=== PATIENT | female | born 1945 | race Caucasian/White ===

== ENCOUNTER 2019-05-21 17:16 | Emergency (ER) | payer MEDICARE, OTHER, SELFPAY ==
[2019-05-21 17:23] VITALS: BP 119/55; PULSE 81; RESP 20; TEMP 36.6; O2SAT 93; BMI 26.6
--- NOTE | 2019-05-21 17:26 | ED_ITS ---
Entered by Cass Moss, acting as scribe for HPI - Chest Pain General: Chief Complaint: Chest Pain Stated Complaint: chest pains, N, V, D, SYNCOPE Time Seen by Provider: 05/21/19 17:26 Source: patient and family Mode of arrival: ambulatory History of Present Illness: HPI narrative: 74 yo f came to the er pov with family for chest pain, n, v, d, and syncope episode. 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) Timing of current episode: episodic Onset: during rest Pain radiation: none Severity: mild Relieving factors: nothing Exacerbating factors: exertion Associated symptoms: Reports nausea and vomiting; Deny dyspnea or fever(s) Risk Factors: Coronary artery disease risk factors: none Related Data: On Oral Contraceptives: No Review of Systems General: Reports: 10 or more systems reviewed and unremarkable except in HPI and below Const: Denies: fever Eyes: Denies: change in vision ENMT: Denies: throat pain Card: Reports: chest pain Resp: Denies: shortness of breath GI: Reports: nausea, vomiting and diarrhea; Denies: coffee grounds in vomit : Denies: flank pain Musc: Denies: neck pain Skin/Breast: Denies: rash Neuro: Reports: other (syncope); Denies: headache Psych: Denies: anxiety Endo: Denies: excessive urination Tyrone/Lymph: Denies: easy bruising All/Imm: Denies: hives PFSH ED PFSH: Statuses (acute, chronic, etc) shown below reflect problem list status as previously entered and may not be historically accurate Social History Smoking and tobacco status: never smoked Physical Exam Const: COMMON NORMALS: oriented x3 HENMT: HEAD & SCALP: normal to inspection Eye: COMMON NORMALS: PERRL PUPIL: Yes PERRL Neck/C-Spine: COMMON NORMALS: full ROM GENERAL: Yes normal visual inspection Chest: COMMONS NORMALS: inspection of chest normal Resp: COMMON NORMALS: normal respiratory effort Cardio: RATE: tachycardic GI: COMMON NORMALS: normal to inspection, nondistended, normoactive bowel sounds OTHER: Patient did have melanotic stools. Hemoccult was essentially negative. Patient is instructed to contact her primary care physician to arrange for an EGD and colonoscopy : COMMON NORMALS: Yes no CVA tenderness BLADDER/KIDNEY EXAM: Yes no CVA tenderness Back/Pelvis: COMMON NORMALS: no CVA tenderness Extremity: COMMON NORMALS: normal to inspection Neuro: COMMON NORMALS: oriented x3 Course ED course: Patient feels much better after the administration of IV fluids. I gave the patient the option of observation admission for dismissal to home. Patient wishes to be dismissed. I will write her prescription for Zofran. She can also use a small amount of Pepto-Bismol for the diarrhea. She is to follow- up with her primary care physician to arrange an EGD and colonoscopy. And she will return to the emergency room for problems or concerns. Vital Signs: Vital signs: Vital Signs Temperature 97.9 F 05/21/19 17:23 Pulse Rate 76 05/21/19 19:36 Respiratory Rate 16 05/21/19 19:36 Blood Pressure 118/52 05/21/19 19:36 Pulse Oximetry 95 05/21/19 19:36 MDM - Chest Pain Lab Data: Labs: Lab Results 05/21/19 05/21/19 05/21/19 Range/Units 17:58 17:58 17:58 WBC 4.3 (4.0-10.0) 10^3/ uL RBC 4.45 (4.1-5.3) 10^6/u L Hgb 13.6 (11.5-15.3) g/dL Hct 41.1 (37.0-47.0) % MCV 92.4 (81-99) fL MCH 30.6 (28.0-34.0) pg MCHC 33.1 (30.0-36.0) g/dL RDW 13.2 (12.1-15.1) % Plt Count 195 (130-400) 10^3/c mm MPV 11.4 H (7.4-10.4) fL Neut % (Auto) 65.4 % Lymph % (Auto) 11.1 % Randolph % (Auto) 22.8 % Eos % (Auto) 0.0 % Baso % (Auto) 0.2 % Neut # (Auto) 2.8 (1.8-7.7) 10^3/u L Lymph # (Auto) 0.5 L (0.8-4.8) 10^3/u L Randolph # (Auto) 1.0 H (0.2-0.9) 10^3/u L Eos # (Auto) 0.0 (0.0-0.8) 10^3/u L Baso # (Auto) 0.0 (0.0-0.1) 10^3/u L Nucleated RBC % (a uto) 0 % Nucleated RBCs # 0.0 /100WBC Sodium 133 L (136-145) mmol/L Potassium 3.5 (3.5-5.1) mmol/L Chloride 97 L (98-107) mmol/L Carbon Dioxide 21 L (22-29) mmol/L Anion Gap 18.5 (5-19) BUN 36 H (8-23) mg/dL Creatinine 1.6 H (0.5-0.9) mg/dL Glucose 146 H (74-106) mg/dL POC Glucose (70-110) mg/dL Calcium 9.2 (8.8-10.2) mg/Dl Total Bilirubin 0.6 (0.15-1.2) mg/dL AST 23 (0-32) U/L ALT 17 (0-33) U/L Alkaline Phosphata se 66 (35-105) IU/L Troponin T Baselin e 33 H (0-10) ng/mL Troponin T 120 Min madelyn (0-10) ng/mL Delta Troponin T (0-10) ABS# NT-Pro-B Natriuret Pep 426 H (0-125) pg/mL Total Protein 7.2 (6.6-8.7) g/dL Albumin 4.3 (3.5-5.2) g/dL Globulin 2.9 (1.3-4.6) g/dL 05/21/19 05/21/19 Range/Units 19:18 19:26 WBC (4.0-10.0) 10^3/ uL RBC (4.1-5.3) 10^6/u L Hgb (11.5-15.3) g/dL Hct (37.0-47.0) % MCV (81-99) fL MCH (28.0-34.0) pg MCHC (30.0-36.0) g/dL RDW (12.1-15.1) % Plt Count (130-400) 10^3/c mm MPV (7.4-10.4) fL Neut % (Auto) % Lymph % (Auto) % Randolph % (Auto) % Eos % (Auto) % Baso % (Auto) % Neut # (Auto) (1.8-7.7) 10^3/u L Lymph # (Auto) (0.8-4.8) 10^3/u L Randolph # (Auto) (0.2-0.9) 10^3/u L Eos # (Auto) (0.0-0.8) 10^3/u L Baso # (Auto) (0.0-0.1) 10^3/u L Nucleated RBC % (a uto) % Nucleated RBCs # /100WBC Sodium (136-145) mmol/L Potassium (3.5-5.1) mmol/L Chloride (98-107) mmol/L Carbon Dioxide (22-29) mmol/L Anion Gap (5-19) BUN (8-23) mg/dL Creatinine (0.5-0.9) mg/dL Glucose (74-106) mg/dL POC Glucose 118 (70-110) mg/dL Calcium (8.8-10.2) mg/Dl Total Bilirubin (0.15-1.2) mg/dL AST (0-32) U/L ALT (0-33) U/L Alkaline Phosphata se (35-105) IU/L Troponin T Baselin e (0-10) ng/mL Troponin T 120 Min madelyn 29.38 H (0-10) ng/mL Delta Troponin T -3.62 L (0-10) ABS# NT-Pro-B Natriuret Pep (0-125) pg/mL Total Protein (6.6-8.7) g/dL Albumin (3.5-5.2) g/dL Globulin (1.3-4.6) g/dL Discharge Plan Discharge Patient Disposition: Home, Self-Care Clinical Impression: Atypical chest pain, Gastroenteritis, Acute dehydration GI bleed Qualifiers: GI bleed type/associated pathology: melena Qualified Code(s): K92.1 - Melena Condition: Stable Prescriptions: New ondansetron HCl [Zofran] 4 mg tablet 4 mg PO Q6H PRN (Reason: nausea and vomiting) Qty: 10 RF: 1 No Action atorvastatin 10 mg Tablet 10 mg PO DAILY RF: 0 isosorbide mononitrate 30 mg Tablet Extended Release 24 Hr 30 mg PO DAILY RF: 0 metoprolol succinate 100 mg Tablet Extended Release 24 Hr 100 mg PO DAILY RF: 0 amitriptyline 25 mg Tablet 25 mg PO BEDTIME RF: 0 Calcium 500 500 mg calcium (1,250 mg) Tablet 500 mg PO BID RF: 0 pantoprazole 40 mg Tablet,Delayed Release (Dr/Ec) 40 mg PO DAILY RF: 0 iron 325 mg (65 mg iron) Tablet 325 mg PO DAILY RF: 0 fluticasone propionate 50 mcg/actuation [place],Suspension 1 spray INTRANASAL BID PRN (Reason: Nasal Congestion) RF: 0 venlafaxine 75 mg Tablet Extended Release 24 Hr 75 mg PO DAILY RF: 0 Coding Level of Care Code ED Veneer Sorter for Chg Jossie The documentation recorded by the Ajay diallo Stephanie Lyn, accurately reflects the service I personally performed and the decisions made by Sandra norman Donald P, DO
--- NOTE | 2019-05-21 17:31 | PC.NURSE ---
ekg done at this time. given to ed physician.
--- NOTE | 2019-05-21 17:37 | ECG_ITS ---
Measurements Intervals [place] Rate: 81 P: 32 WA: 146 QRS: 42 QRSD: 102 T: -3 QT: 384 QTc: 446 SINUS RHYTHM INCOMPLETE RIGHT BUNDLE BRANCH BLOCK ST DEVIATION AND MODERATE T-WAVE ABNORMALITY, CONSIDER ANTERIOR ISCHEMIA ST DEVIATION AND MODERATE T-WAVE ABNORMALITY, CONSIDER INFERIOR ISCHEMIA Compared to ECG 01/31/2019 18:30:19 Possible ischemia now present Sinus bradycardia no longer present Prolonged QT interval no longer present T-wave abnormality still present Electronically Signed On 05-22-2019 6:49:01 MACHINE SCALLOP CUTTER by Anjali Allen M.D. [id number] lind
--- NOTE | 2019-05-21 17:37 | XR_ITS ---
WS: [id number] Portable AP upright chest, 05/21/2019 Clinical Data: chest pain Comparison: Portable chest, 01/31/2019 Findings: No nodules, masses or effusions are seen. The heart is normal. The pulmonary vascularity is not increased. No pneumonia or pneumothorax is seen. There is a small electronic recording device ov erlying the left chest. Monitor leads are on the chest wall. There is a gentle dextroscoliosis. The a ortic arch and descending aorta are minimally tortuous. XR/XR chest 1V portable [id number] Impression: Atherosclerosis
--- NOTE | 2019-05-21 17:53 | W.ED.NEUROSD ---
HPI - Neuro Symptoms/Deficit General: Chief Complaint: Chest Pain Stated Complaint: chest pains, N, V, D, SYNCOPE Time Seen by Provider: 05/21/19 17:26 Source: patient and family Mode of arrival: ambulatory History of Present Illness: Severity: mild PFSH ED PFSH: Statuses (acute, chronic, etc) shown below reflect problem list status as previously entered and may not be historically accurate Social History Smoking and tobacco status: never smoked Course Vital Signs: Vital signs: Vital Signs Temperature 97.9 F 05/21/19 17:23 Pulse Rate 81 05/21/19 17:23 Respiratory Rate 20 H 05/21/19 17:23 Blood Pressure 119/55 05/21/19 17:23 Pulse Oximetry 93 05/21/19 17:23 Coding Level of Care Code ED Bike Mechanic for Tanisha Sethi
[2019-05-21 18:05] LABS: Basophils % 0.2 %; Hematocrit 41.1 % (37.0-47.0); Hemoglobin 13.6 g/dL (11.5-15.3); Lymphocytes # 0.5 10^3/uL (0.8-4.8); Lymphocytes % 11.1 %; Mean Corpuscular HGB Conc 33.1 g/dL (30.0-36.0); Mean Corpuscular Hemoglobin 30.6 pg (28.0-34.0); Mean Corpuscular Volume 92.4 fL (81-99); Mean Platelet Volume 11.4 fL (7.4-10.4); Monocytes % 22.8 %; Neutrophils # 2.8 10^3/uL (1.8-7.7); Neutrophils % 65.4 %; Nucleated Red Blood Cells % 0 %; Platelet Count 195 10^3/cmm (130-400); Red Blood Count 4.45 10^6/uL (4.1-5.3); Red Cell Distribution Width 13.2 % (12.1-15.1); White Blood Count 4.3 10^3/uL (4.0-10.0)
[2019-05-21] MEDS: ondansetron 2 mg/ML SDV 2 mL 4 MG IVP (18:24)
[2019-05-21] MEDS: sodium chloride 0.9% 1,000 ML 999 ML IV (18:25)
--- NOTE | 2019-05-21 18:25 | ED_ITS ---
HPI - Chest Pain General: Chief Complaint: Chest Pain Stated Complaint: chest pains, N, V, D, SYNCOPE Time Seen by Provider: 05/21/19 17:26 Source: patient and family Mode of arrival: ambulatory History of Present Illness: Relieving factors: nothing Exacerbating factors: exertion Associated symptoms: Reports dyspnea, fever(s) and nausea; Deny abdominal pain Related Data: On Oral Contraceptives: No Review of Systems General: Reports: 10 or more systems reviewed and unremarkable except in HPI and below Const: Reports: fever, chills, body aches and fatigue Card: Reports: lightheadedness and shortness of breath on exertion Resp: Reports: shortness of breath, non-productive cough, wheezing and pain on inspiration GI: Reports: nausea; Denies: abdominal pain : Denies: difficulty urinating PFSH ED PFSH: Statuses (acute, chronic, etc) shown below reflect problem list status as previously entered and may not be historically accurate Social History Smoking and tobacco status: never smoked Course Vital Signs: Vital signs: Vital Signs Temperature 97.9 F 05/21/19 17:23 Pulse Rate 81 05/21/19 17:23 Respiratory Rate 20 H 05/21/19 17:23 Blood Pressure 119/55 05/21/19 17:23 Pulse Oximetry 93 05/21/19 17:23 MDM - Chest Pain Lab Data: Labs: Lab Results 05/21/19 Range/Units 17:58 WBC 4.3 (4.0-10.0) 10^3/ uL RBC 4.45 (4.1-5.3) 10^6/u L Hgb 13.6 (11.5-15.3) g/dL Hct 41.1 (37.0-47.0) % MCV 92.4 (81-99) fL MCH 30.6 (28.0-34.0) pg MCHC 33.1 (30.0-36.0) g/dL RDW 13.2 (12.1-15.1) % Plt Count 195 (130-400) 10^3/c mm MPV 11.4 H (7.4-10.4) fL Neut % (Auto) 65.4 % Lymph % (Auto) 11.1 % Ellis % (Auto) 22.8 % Eos % (Auto) 0.0 % Baso % (Auto) 0.2 % Neut # (Auto) 2.8 (1.8-7.7) 10^3/u L Lymph # (Auto) 0.5 L (0.8-4.8) 10^3/u L Ellis # (Auto) 1.0 H (0.2-0.9) 10^3/u L Eos # (Auto) 0.0 (0.0-0.8) 10^3/u L Baso # (Auto) 0.0 (0.0-0.1) 10^3/u L Nucleated RBC % (a uto) 0 % Nucleated RBCs # 0.0 /100WBC Coding Level of Care Code ED Collector Of Internal Revenue for Tanisha Sethi
--- NOTE | 2019-05-21 18:28 | W.ED.CHESTPA ---
HPI - Chest Pain General: Chief Complaint: Chest Pain Stated Complaint: chest pains, N, V, D, SYNCOPE Time Seen by Provider: 05/21/19 17:26 Source: patient and family Mode of arrival: ambulatory History of Present Illness: Relieving factors: nothing Exacerbating factors: exertion Associated symptoms: Reports nausea and vomiting; Deny dyspnea or fever(s) Related Data: On Oral Contraceptives: No Review of Systems General: Reports: 10 or more systems reviewed and unremarkable except in HPI and below Const: Denies: fever Eyes: Denies: change in vision ENMT: Denies: throat pain Card: Reports: chest pain Resp: Denies: shortness of breath GI: Reports: nausea, vomiting and diarrhea; Denies: coffee grounds in vomit : Denies: flank pain Musc: Denies: neck pain Skin/Breast: Denies: rash Neuro: Reports: other (syncope); Denies: headache Psych: Denies: anxiety Endo: Denies: excessive urination Tyrone/Lymph: Denies: easy bruising All/Imm: Denies: hives PFSH ED PFSH: Statuses (acute, chronic, etc) shown below reflect problem list status as previously entered and may not be historically accurate Social History Smoking and tobacco status: never smoked Physical Exam Const: COMMON NORMALS: oriented x3 HENMT: HEAD & SCALP: normal to inspection Eye: COMMON NORMALS: PERRL PUPIL: Yes PERRL Neck/C-Spine: COMMON NORMALS: full ROM GENERAL: Yes normal visual inspection Chest: COMMONS NORMALS: inspection of chest normal Resp: COMMON NORMALS: normal respiratory effort Cardio: RATE: tachycardic GI: COMMON NORMALS: normal to inspection, nondistended, normoactive bowel sounds : COMMON NORMALS: Yes no CVA tenderness BLADDER/KIDNEY EXAM: Yes no CVA tenderness Back/Pelvis: COMMON NORMALS: no CVA tenderness Extremity: COMMON NORMALS: normal to inspection Neuro: COMMON NORMALS: oriented x3 Course Vital Signs: Vital signs: Vital Signs Temperature 97.9 F 05/21/19 17:23 Pulse Rate 81 05/21/19 17:23 Respiratory Rate 20 H 05/21/19 17:23 Blood Pressure 119/55 05/21/19 17:23 Pulse Oximetry 93 05/21/19 17:23 MDM - Chest Pain Lab Data: Labs: Lab Results 05/21/19 Range/Units 17:58 WBC 4.3 (4.0-10.0) 10^3/ uL RBC 4.45 (4.1-5.3) 10^6/u L Hgb 13.6 (11.5-15.3) g/dL Hct 41.1 (37.0-47.0) % MCV 92.4 (81-99) fL MCH 30.6 (28.0-34.0) pg MCHC 33.1 (30.0-36.0) g/dL RDW 13.2 (12.1-15.1) % Plt Count 195 (130-400) 10^3/c mm MPV 11.4 H (7.4-10.4) fL Neut % (Auto) 65.4 % Lymph % (Auto) 11.1 % Douglas % (Auto) 22.8 % Eos % (Auto) 0.0 % Baso % (Auto) 0.2 % Neut # (Auto) 2.8 (1.8-7.7) 10^3/u L Lymph # (Auto) 0.5 L (0.8-4.8) 10^3/u L Douglas # (Auto) 1.0 H (0.2-0.9) 10^3/u L Eos # (Auto) 0.0 (0.0-0.8) 10^3/u L Baso # (Auto) 0.0 (0.0-0.1) 10^3/u L Nucleated RBC % (a uto) 0 % Nucleated RBCs # 0.0 /100WBC Coding Level of Care Code ED Pocket Grinder Operator for Tanisha Sethi
--- NOTE | 2019-05-21 18:50 | PC.NURSE ---
pt has black diarrhea, stool tested at bedside for occult blood. Positive test result. ED provider in room.
[2019-05-21 18:51] LABS: Troponin(5th) Baseline 33 ng/mL (0-10)
[2019-05-21 19:00] LABS: Alanine Aminotransferase 17 U/L (0-33); Albumin Level 4.3 g/dL (3.5-5.2); Alkaline Phosphatase 66 IU/L (35-105); Anion Gap 18.5 (5-19); Aspartate Amino Transferase 23 U/L (0-32); Blood Urea Nitrogen 36 mg/dL (8-23); Calcium 9.2 mg/Dl (8.8-10.2); Carbon Dioxide 21 mmol/L (22-29); Chloride 97 mmol/L (98-107); Globulin 2.9 g/dL (1.3-4.6); Glucose 146 mg/dL (74-106); NT Pro B Type Natriuretic Pept 426 pg/mL (0-125); Potassium 3.5 mmol/L (3.5-5.1); Sodium 133 mmol/L (136-145); Total Bilirubin 0.6 mg/dL (0.15-1.2); Total Protein 7.2 g/dL (6.6-8.7)
[2019-05-21 19:08] VITALS: BP 117/53; PULSE 96; RESP 20; O2SAT 93
[2019-05-21 19:22] LABS: Glucose Point of Care 118 mg/dL (70-110)
[2019-05-21 19:36] VITALS: BP 118/52; PULSE 76; RESP 16; O2SAT 95
[2019-05-21 19:46] LABS: Troponin 5 2HR 29.38 ng/mL (0-10)
[2019-05-21 19:47] LABS: Troponin 5 2HR Delta -3.62 ABS# (0-10)
[2019-05-21 20:19] LABS: Add RBC Morph No; Slide Review Slide Review Perform
[2019-05-21 20:42] LABS: Blood Urine Trace (Negative); Glucose Urine UA Norm (Normal); Ketones Urine 1+ (Negative); Protein Urine 1+ (Negative); Urine Appearance Hazy (CLEAR); Urine Color Yellow (Yellow); pH Urine 5 (5-7)
[2019-05-21 20:43] LABS: Nitrate Urine Negative (Negative)
[2019-05-21 20:48] LABS: Bilirubin Urine 1+ (Negative); Leukocyte Esterase Urine Trace (Negative); Urobilinogen Urine 1 mg/dL (Negative)
[2019-05-21 21:00] VITALS: BP 110/43; PULSE 78; RESP 17; TEMP 36.8; O2SAT 95
[2019-05-21 21:05] LABS: Squamous Epithelial Cell Urine 25-40 (0-5)
[2019-05-21 21:07] LABS: Add Urine Culture? No; Bacteria Urine 2+; RBC Urine 0-4 /hpf (0-2)
--- NOTE | 2019-05-21 23:37 | ECG_ITS ---
Measurements Intervals [place] Rate: 76 P: 41 MD: 154 QRS: 64 QRSD: 99 T: -43 QT: 407 QTc: 459 SINUS RHYTHM INCOMPLETE RIGHT BUNDLE BRANCH BLOCK ST DEVIATION AND MODERATE T-WAVE ABNORMALITY, CONSIDER ANTERIOR ISCHEMIA ST DEVIATION AND MODERATE T-WAVE ABNORMALITY, CONSIDER INFERIOR ISCHEMIA Compared to ECG 01/31/2019 18:30:19 Possible ischemia now present Sinus bradycardia no longer present Prolonged QT interval no longer present T-wave abnormality still present Electronically Signed On 05-22-2019 7:02:24 CILNICAL SCIENTIST by Anjali Allen M.D. [email or web address]
== END 2019-05-21 21:05 | disposition home or self-care (01) ==
LOC: ER 20:21
PROVIDERS: Emergency Provider Family Medicine
DX: R07.89 Other chest pain (principal); K52.9 Noninfective gastroenteritis and colitis, unspecified; E86.0 Dehydration; K92.1 Melena
CPT/HCPCS: 36415; 36416; 71045; 80053; 81001; 82962; 83880; 84484; 85025; 93005; 96360; 96374; 99282; J2405; J7030

== ENCOUNTER → 2021-06-17 11:44 | Outpatient (BNVA) | payer MEDICARE, OTHER, SELFPAY | PROVIDERS: Visit Provider Nurse Practitioner Family | DX: Z20.822 Contact with and (suspected) exposure to COVID-19 (principal); Z11.52 Encounter for screening for COVID-19 | CPT/HCPCS: 87635 ==

== ENCOUNTER → 2022-04-17 17:31 | Outpatient (BNVA) | payer MEDICARE, OTHER, SELFPAY | PROVIDERS: Visit Provider Nurse Practitioner Family | DX: J40 Bronchitis, not specified as acute or chronic (principal); I10 Essential (primary) hypertension; R05.9 Cough, unspecified; E03.9 Hypothyroidism, unspecified; E78.5 Hyperlipidemia, unspecified; I25.10 Atherosclerotic heart disease of native coronary artery without angina pectoris; J06.9 Acute upper respiratory infection, unspecified | CPT/HCPCS: 80053 ==

== ENCOUNTER → 2022-05-29 10:21 | Outpatient (BNVA) | payer MEDICARE, OTHER, SELFPAY | PROVIDERS: PCP Family Medicine; Visit Provider Family Medicine | DX: E03.9 Hypothyroidism, unspecified (principal); I47.1 Supraventricular tachycardia; I25.10 Atherosclerotic heart disease of native coronary artery without angina pectoris | CPT/HCPCS: 84439; 84443 ==

== ENCOUNTER → 2022-07-07 09:27 | Outpatient (BNVA) | payer MEDICARE, OTHER, SELFPAY | PROVIDERS: PCP Family Medicine; Visit Provider Internal Medicine Cardiovascular Disease | DX: I47.1 Supraventricular tachycardia (principal); I25.10 Atherosclerotic heart disease of native coronary artery without angina pectoris; E78.5 Hyperlipidemia, unspecified; E03.9 Hypothyroidism, unspecified; I10 Essential (primary) hypertension | CPT/HCPCS: 93005; 99204; Q3014 ==

== ENCOUNTER → 2023-01-05 08:50 | Outpatient (BNVA) | payer MEDICARE, OTHER, SELFPAY | PROVIDERS: PCP Family Medicine; Visit Provider Internal Medicine Cardiovascular Disease | DX: I47.1 Supraventricular tachycardia (principal); I25.10 Atherosclerotic heart disease of native coronary artery without angina pectoris; I10 Essential (primary) hypertension | CPT/HCPCS: 99214 ==

== ENCOUNTER 2023-02-01 07:50 | Outpatient (CLI) | payer MEDICARE, OTHER, SELFPAY ==
--- NOTE | 2023-02-01 | ECG_ITS ---
[facility] Test Date: 2023-02-01 Pat Name: Gela Bernstein Department: Room: Gender: Female Licensed Prosthetist: Obdulio Begum : 1945 Requested By: Anjali Allen Order Number: [id number] Davina MD: Anjali Allen M.D. Interpretive Statements NAME OF STUDY: LEXISCAN SESTAMIBI STRESS TEST INDICATION: Dyspnea on Exertion; History of CAD PROCEDURE: At the baseline, the blood pressure was 145/86 mmHg with a heart rate of 54 bpm. The electrocardiogram showed sinus bradycardia, right axis deviation. Normal axis. Right bundle branch block. The Lexiscan was infused over a period of 20 seconds. A total of 0.4 milligrams of Lexiscan was infused. The stress phase was continued for a total of 5 minutes. Heart rate at the end of the stress phase was 80 bpm with a blood pressure of 148/68 mm Hg. The EKG at the peak infusion revealed no significant ST-T wave changes. Sestamibi was injected 20 seconds after the Lexiscan infusion. Blood pressure at the end of the recovery phase was 145/65 mmHg with a heart rate of 75 beats per minute. CONCLUSION: 1. No significant EKG changes with the LexiScan infusion. 2. No LexiScan induced chest pain or cardiac arrhythmia. 3. Normal blood pressure and heart rate response. 4. Sestamibi/sestamibi perfusion scan pending; see separate report. Electronically Signed On 02-03-2023 12:27:10 CDT by Anjali Allen M.D. [id number]
[2023-02-01 08:46] VITALS: BMI 26.6
--- NOTE | 2023-02-01 08:49 | NMCV_ITS ---
NM jorden perf SPECT r/s* [id number] Gela Bernstein Age: 77 Gender: F : 1945 Exam Date: 02/01/2023 08:49 Ordering Phys: Anjali Allen MD ([email or web address]) Technologist: SURAJ Barrientos Exam Location: [facility] Indications: EXERTIONAL SHORTNESS OF BREATH, ATHEROSCLEROTIC HEART DISEASE STRESS TEST Please see separate stress test report in [facility] for full findings IMAGE PROTOCOL Rest/Stress 1 Lexiscan Day Radiopharmaceutical Dose (mCi) Administration Site Administered by Rest: Tc-99m 11.0 IV SURAJ Barrientos Sestamibi Stress:Tc-99m 32.5 IV SURAJ Barrientos Sestamibi Rest: 01-Feb-2023 60 Discovery 630 Stress: 01-Feb-2023 30 Discovery 630 0.4mg Lexiscan. Images obtained in supine and prone position. SPECT RESULTS Technical Quality: Excellent Raw Data Analysis: Normal Image Corrections: No attenuation or motion correction applied Summed Stress Score: 1 Summed Rest Score: 0 Summed Difference Score: 1 PERFUSION FINDINGS FUNCTIONAL RESULTS (calculated via Gated SPECT) Stress Image LV EF (%): 66 Stress EDV (mL):77 TID: 1.04 Stress ESV (mL):26 FUNCTIONAL FINDINGS: The left ventricle is normal in size. The left ventricular ejection fraction is normal with a value of 66%. Transient Ischemia Dilatation of 1. There is normal left ventricular wall thickening. Normal end diastolic and end systolic volumes. IMPRESSIONS 1. Myocardial perfusion imaging is normal. 2. Overall left ventricular systolic function is normal without regional wall motion abnormalities, LVEF=66%. 3. EKG portion of the study will be reported separately. 4. Scan indicates low risk for cardiac events. Anjali Allen MD (Electronically Signed) Final Date: 01 February 2023 12:56 S
[2023-02-01] MEDS: regadenoson 0.4 Mg/5 ml Syringe IVP (09:37)
[2023-02-01 09:55] VITALS: BP 145/65; PULSE 75
== END 2023-02-01 07:51 | disposition home or self-care (01) ==
LOC: CDL 07:51
PROVIDERS: PCP Family Medicine; Visit Provider Internal Medicine Cardiovascular Disease
DX: I25.10 Atherosclerotic heart disease of native coronary artery without angina pectoris (principal); I45.10 Unspecified right bundle-branch block; R00.1 Bradycardia, unspecified
CPT/HCPCS: 36415; 78452; 93017; 96374; A9500; J2785

== ENCOUNTER → 2023-02-22 14:14 | Outpatient (BNVA) | payer MEDICARE, OTHER, SELFPAY | PROVIDERS: PCP Family Medicine; Visit Provider Family Medicine | DX: A08.4 Viral intestinal infection, unspecified (principal); M54.50 Low back pain, unspecified; R19.7 Diarrhea, unspecified | CPT/HCPCS: 81000 ==

== ENCOUNTER → 2023-07-11 09:15 | Outpatient (BNVA) | payer MEDICARE, OTHER, SELFPAY | PROVIDERS: PCP Family Medicine; Visit Provider Nurse Practitioner Family | DX: I25.10 Atherosclerotic heart disease of native coronary artery without angina pectoris (principal); I10 Essential (primary) hypertension | CPT/HCPCS: 99214 ==

== ENCOUNTER → 2023-09-07 13:53 | Outpatient (BNVA) | payer MEDICARE, OTHER, SELFPAY | PROVIDERS: PCP Family Medicine; Visit Provider Nurse Practitioner Family | DX: N39.0 Urinary tract infection, site not specified (principal) | CPT/HCPCS: 81000 ==

== ENCOUNTER → 2023-09-12 14:27 | Outpatient (BNVA) | payer MEDICARE, OTHER, SELFPAY | PROVIDERS: PCP Family Medicine; Visit Provider Nurse Practitioner Family | DX: N39.0 Urinary tract infection, site not specified (principal) | CPT/HCPCS: 81003; 87086 ==

== ENCOUNTER → 2023-10-08 11:17 | Outpatient (BNVA) | payer MEDICARE, OTHER, SELFPAY | PROVIDERS: PCP Family Medicine; Visit Provider Family Medicine | DX: R30.0 Dysuria (principal); N39.0 Urinary tract infection, site not specified; E78.5 Hyperlipidemia, unspecified; I10 Essential (primary) hypertension | CPT/HCPCS: 81003 ==

== ENCOUNTER → 2023-10-16 11:05 | Outpatient (BNVA) | payer MEDICARE, OTHER, SELFPAY | PROVIDERS: PCP Family Medicine; Visit Provider Family Medicine | DX: N39.0 Urinary tract infection, site not specified (principal) | CPT/HCPCS: 81003; 87077; 87086; 87184 ==